=== PATIENT | male | born 1940 ===

== ENCOUNTER 2017-04-12 02:10 | Emergency (ER) | payer MEDICARE ==
[2017-04-12 02:10] VITALS: BMI 21.5
[2017-04-12 02:37] VITALS: BP 116/53; PULSE 79; RESP 18; TEMP 97.1; O2SAT 98
[2017-04-12] MEDS ORDERED: Albuterol-Ipratrop 3 mg / 0.5 (3 ml) UD IH STA (03:10)
--- NOTE | 2017-04-12 03:14 | ED PDOC ---
HPI: CCC, URI, Sore Throat Time Seen by Provider: 04/12/17 02:45 Chief Complaint (Nursing): Cough, Cold, Congestion Chief Complaint (Provider): cold-symptoms History Per: Patient, Family History/Exam Limitations: no limitations Onset/Duration Of Symptoms: Days (1 week) Current Symptoms Are (Timing): Still Present Associated Symptoms: Cough, Nasal Congestion Additional History Per: Patient, Family Additional Complaint(s): 77 y/o male presents with nasal congestion, nonproductive cough x 1 week. As per , cough became more persistent as per yesterday, also noted redness to left eye afterwards. Denies fever, headache, dizziness, chest pain, shortness of breath, palpitations, abdominal pain, leg pain/swelling, recent travel, sick contacts. Past Medical History Reviewed: Historical Data, Nursing Documentation, Vital Signs Vital Signs: Last Vital Signs Temp 97.1 F L 04/12/17 02:23 Pulse 79 04/12/17 02:23 Resp 18 04/12/17 02:23 BP 116/53 L 04/12/17 02:23 Pulse Ox 98 04/12/17 03:14 - Medical History PMH: Atrial Fibrillation, HTN - Surgical History Surgical History: Cholecystectomy - Family History Family History: States: Unknown Family Hx - Home Medications Home Medications: Ambulatory Orders Medication Instructions Recorded Bimatoprost [Lumigan] 1 drop EACHEYE HS 11/10/14 Cholecalciferol [Vitamin D] 2,000 unit PO DAILY 11/10/14 Lisinopril [Zestril] 10 mg PO DAILY 11/10/14 Metoprolol Succinate [Toprol XL] 50 mg PO DAILY 11/10/14 Polyethylene Glycol/Polyvinyl 1 drop EACHEYE DAILY 11/10/14 [Artificial Tears] Silodosin [Rapaflo] 8 mg PO DAILY 11/10/14 Warfarin [Coumadin] 2.5 mg PO [id number] 11/10/14 Azithromycin [Zithromax] 500 mg PO DAILY #5 tab 11/16/14 Ciprofloxacin HCl [Ciprofloxacin] 500 mg PO BID #10 tab 11/16/14 Lidocaine 5% [Lidoderm] 1 ea TD DAILY #10 patch 02/25/16 Polyethylene Glycol 3350 [Miralax] 17 gm PO DAILY #5 packet 02/25/16 Albuterol HFA [Ventolin HFA 90 1 puff IH Q4 PRN #1 inh 04/12/17 mcg/actuation (8 g)] Benzonatate [Tessalon Perle] 100 mg PO TID PRN #21 capsule 04/12/17 Fluticasone Nasal [Flonase] 1 actuation NS BID #1 bottle 04/12/17 - Allergies Allergies/Adverse Reactions: Allergies Allergy/AdvReac Type Severity Reaction Status Date / Time No Known Allergies Allergy Verified 02/25/16 11:57 Review of Systems ROS Statement: Except As Marked, All Systems Reviewed And Found Negative ENT: Positive for: Nose Congestion Respiratory: Positive for: Cough Physical Exam - Reviewed Nursing Documentation Reviewed: Yes Vital Signs Reviewed: Yes - Physical Exam Appears: Positive for: Well, Non-toxic, No Acute Distress Head Exam: Positive for: ATRAUMATIC, NORMAL INSPECTION, NORMOCEPHALIC Skin: Positive for: Normal Color Eye Exam: Positive for: Normal appearance, Conjunctival injection (left subconjunctival hemorrhage) ENT: Positive for: Nasal Congestion Cardiovascular/Chest: Positive for: Regular Rate, Rhythm Respiratory: Positive for: Normal Breath Sounds Gastrointestinal/Abdominal: Positive for: Normal Exam Back: Positive for: Normal Inspection Extremity: Positive for: Normal ROM Neurologic/Psych: Positive for: Alert, Oriented - ECG O2 Sat by Pulse Oximetry: 98 - Progress ED Course And Treament: flu, duoneb EXAM: XR Chest, 2 Views EXAM DATE/TIME: 04/12/2017 3:10 AM CLINICAL HISTORY: 77 years old, male; Signs and symptoms; Cough; Symptoms not specified; Additional info: Cough, congestion TECHNIQUE: Frontal and lateral views of the chest. COMPARISON: CR - CHEST TWO VIEWS (PA/LAT) 2016-08-02 08:22 FINDINGS: There is stable cardiomegaly. Suggestion of focal elevation of the right hemidiaphragm on lateral view. Air-filled bowel loops are noted overlying the left hemidiaphragm. The lungs are unchanged from prior. No focal infiltrates. No effusions. IMPRESSION: No acute pulmonary disease Patient educated on findings, discharged with rx flonase, Tessalon Perles, Albuterol HFA Advised follow up PMD 2-3 days. Rest. Fluids Return precautions given. Disposition - Clinical Impression Clinical Impression: Upper respiratory infection, Subconjunctival hemorrhage of left eye - Patient ED Disposition Is Patient to be Admitted: No Counseled Patient/Family Regarding: Studies Performed, Diagnosis, Need For Followup, Rx Given - Disposition Disposition: Routine/Home Disposition Time: 04:33 Condition: IMPROVED Prescriptions: Albuterol HFA [Ventolin HFA 90 mcg/actuation (8 g)] 1 puff IH Q4 PRN #1 inh PRN Reason: Wheezing Benzonatate [Tessalon Perle] 100 mg PO TID PRN #21 capsule PRN Reason: Cough Fluticasone Nasal [Flonase] 1 actuation NS BID #1 bottle Instructions: Upper Respiratory Infection (ED), Subconjunctival Hemorrhage (ED) Forms: [employer] (Sami) Print Language: BELARUSIAN
[2017-04-12] MEDS ORDERED: Albuterol-Ipratrop 3 mg / 0.5 (3 ml) UD ONE (03:18)
--- NOTE | 2017-04-12 04:29 | RAD ---
EXAM: XR Chest, 2 Views EXAM DATE/TIME: 04/12/2017 3:10 AM CLINICAL HISTORY: 77 years old, male; Signs and symptoms; Cough; Symptoms not specified; Additional info: Cough, congestion TECHNIQUE: Frontal and lateral views of the chest. COMPARISON: CR - CHEST TWO VIEWS (PA/LAT) 2016-08-02 08:22 FINDINGS: There is stable cardiomegaly. Suggestion of focal elevation of the right hemidiaphragm on lateral view. Air-filled bowel loops are noted overlying the left hemidiaphragm. The lungs are unchanged from prior. No focal infiltrates. No effusions. IMPRESSION: No acute pulmonary disease.
== END 2017-04-12 04:57 | disposition home or self-care (01) ==
LOC: H.ER 02:10
DX: J06.9 Acute upper respiratory infection, unspecified (principal); H11.32 Conjunctival hemorrhage, left eye; I10 Essential (primary) hypertension; I48.91 Unspecified atrial fibrillation; Z79.01 Long term (current) use of anticoagulants